=== PATIENT | female | born 2000 | race Two or more races ===

== ENCOUNTER 2021-05-19 10:15 | Outpatient (CLI) | payer OTHER | END 2021-05-19 10:45 | disposition home or self-care (01) | LOC: PPH VACUNA 10:15 | PROVIDERS: ATTEND Emergency Medicine Pediatric Emergency Medicine | DX: Z23 Encounter for immunization (principal) ==

== ENCOUNTER 2021-06-07 08:00 | Outpatient (CLI) | payer OTHER | END 2021-06-07 08:30 | disposition home or self-care (01) | LOC: PPH VACUNA 08:00 | PROVIDERS: ATTEND Emergency Medicine Pediatric Emergency Medicine | DX: Z23 Encounter for immunization (principal) ==

== ENCOUNTER 2021-09-16 12:45 | Outpatient (CLI) | payer OTHER | END 2021-09-16 12:59 | disposition home or self-care (01) | LOC: LAB 12:45 | PROVIDERS: ATTEND Preventive Medicine Occupational Medicine | DX: Z20.828 Contact with and (suspected) exposure to other viral communicable diseases (principal) ==

== ENCOUNTER 2021-10-20 08:00 | Outpatient (CLI) | payer OTHER | END 2021-10-20 08:30 | disposition home or self-care (01) | LOC: PPH VACUNA 08:00 | PROVIDERS: ATTEND Emergency Medicine Pediatric Emergency Medicine | DX: Z23 Encounter for immunization (principal) ==

== ENCOUNTER 2022-01-02 15:56 | Outpatient (CLI) | payer OTHER | END 2022-01-02 16:19 | disposition home or self-care (01) | LOC: LAB 15:56 | PROVIDERS: ATTEND Anesthesiology | DX: Z20.822 Contact with and (suspected) exposure to COVID-19 (principal); A49.3 Mycoplasma infection, unspecified site; J11.1 Influenza due to unidentified influenza virus with other respiratory manifestations ==

== ENCOUNTER 2022-05-09 11:23 | Emergency (ER) | payer OTHER ==
[~2022-05-09] VITALS: Ht 160 cm; Wt 77.1 kg
== END 2022-05-09 17:16 | disposition home or self-care (01) ==
LOC: ER 11:23
DX: R11.10 Vomiting, unspecified (principal)

== ENCOUNTER 2022-05-11 08:00 | Outpatient (CLI) | payer OTHER | END 2022-05-11 08:05 | disposition home or self-care (01) | LOC: PPH VACUNA 08:00 | PROVIDERS: ATTEND Emergency Medicine Pediatric Emergency Medicine | DX: Z23 Encounter for immunization (principal) ==

== ENCOUNTER 2022-06-18 23:01 | Emergency (ER) | payer OTHER ==
[~2022-06-18] VITALS: Ht 162.6 cm; Wt 77.1 kg
== END 2022-06-18 23:21 | disposition home or self-care (01) ==
LOC: ER 23:01 → EDBD 23:04 → ER 23:04
DX: S61.211A Laceration without foreign body of left index finger without damage to nail, initial encounter (principal); W26.0XXA Contact with knife, initial encounter; Y93.G3 Activity, cooking and baking; Y92.010 Kitchen of single-family (private) house as the place of occurrence of the external cause; Y99.9 Unspecified external cause status

== ENCOUNTER 2022-11-14 14:24 | Emergency (ER) | payer OTHER ==
[~2022-11-14] VITALS: Ht 160 cm; Wt 77.1 kg
== END 2022-11-14 19:24 | disposition home or self-care (01) ==
LOC: ER 14:24
DX: K52.89 Other specified noninfective gastroenteritis and colitis (principal)

== ENCOUNTER 2023-02-07 22:18 | Emergency (ER) | payer OTHER ==
[~2023-02-07] VITALS: Ht 162.6 cm; Wt 77.1 kg
== END 2023-02-07 22:51 | disposition home or self-care (01) ==
LOC: ER 22:18
DX: S69.82XA Other specified injuries of left wrist, hand and finger(s), initial encounter (principal); W46.1XXA Contact with contaminated hypodermic needle, initial encounter; Y93.89 Activity, other specified; Y92.238 Other place in hospital as the place of occurrence of the external cause; Y99.8 Other external cause status

== ENCOUNTER 2023-06-08 10:15 | Outpatient (CLI) | payer OTHER | END 2023-06-08 10:25 | disposition home or self-care (01) | LOC: PPH VACUNA 10:15 | PROVIDERS: ATTEND Emergency Medicine Pediatric Emergency Medicine | DX: Z23 Encounter for immunization (principal) ==

== ENCOUNTER 2023-06-15 10:20 | Outpatient (CLI) | payer OTHER ==
[2023-06-15 11:45] LABS: PH,URINE 5.5 (5.0-8.0); URINE APPEARANCE Clear; URINE BACTERIA 118.4 uL (0.0-1933); URINE BILIRRUBIN Negative (NEGATIVE); URINE BLOOD Negative; URINE COLOR Yellow; URINE EPITHELIAL CELLS 9.2 uL (0.0-38.8); URINE GLUCOSE Negative (NEGATIVE); URINE LEUKOCYTE Negative; URINE NITRATE Negative; URINE PROTEIN Negative (NEGATIVE); URINE RBC 3.8 uL (0.0-20.8); URINE UROBILINOGEN 0.2 E.U./dl; URINE WBC 23.9 uL (0.0-23.2)
[2023-06-15 11:46] LABS: HEMATOCRIT 33.1 % (36.0-45.00); HEMOGLOBIN 10.8 g/dL (12.0-15.00); MEAN CELL VOLUME 78.7 fL (80.00-100.00); MEAN CORPUSCULAR HEMOGLOBIN 25.8 pg (27.00-32.0); MEAN CORPUSCULAR HGB CONC 32.8 g/dl (32.0-36.0); PLATELET COUNT 167 K/uL (150-450); RED CELL DISTRIBUTION WIDTH 16.3 % (11.5-14.5)
[2023-06-15 12:30] LABS: ALBUMIN 3.7 gm/dL (3.4-5.0); BILIRUBIN TOTAL 0.31 mg/dL (0.3-1.2); CALCIUM 9.2 mg/dL (8.5-10.1); CHOL HDL RATIO 3.8 (0-5.0); CREATININE SERUM 0.75 mg/dL (0.55-1.02); GFR 94.94; GLOBULINA 3.4 G/DL (2.4-3.5); POTASSIUM 4.37 mEq/L (3.5-5.1); T4 FREE 0.95 NG/ML (0.76-1.46); TOTAL PROTEIN 7.1 gm/dL (6.4-8.2); TSH 0.726 uIU/mL (0.358-3.74)
== END 2023-06-15 10:21 | disposition home or self-care (01) ==
LOC: LAB 10:20
PROVIDERS: ATTEND Obstetrics & Gynecology
DX: I10 Essential (primary) hypertension (principal); E03.9 Hypothyroidism, unspecified; E78.00 Pure hypercholesterolemia, unspecified; Z11.4 Encounter for screening for human immunodeficiency virus [HIV]; N39.0 Urinary tract infection, site not specified; E55.9 Vitamin D deficiency, unspecified; Z21 Asymptomatic human immunodeficiency virus [HIV] infection status; R79.9 Abnormal finding of blood chemistry, unspecified; R79.89 Other specified abnormal findings of blood chemistry

== ENCOUNTER 2023-10-18 10:20 | Emergency (ER) | payer OTHER ==
[~2023-10-18] VITALS: Ht 162.6 cm; Wt 78.0 kg
[2023-10-18] MEDS ORDERED: VITATRUE COMBO1 EACH PO (10:51)
[2023-10-18] MEDS ORDERED: 0.9 % SODIUM CHLORIDE 1,000 ML IV STA (11:31)
[2023-10-18] MEDS ORDERED: ONDANSETRON HCL 2 MG/ML VIAL IV ONE (11:45)
[2023-10-18] MEDS ORDERED: FAMOTIDINE/PF 20 MG/2 ML VIAL IV ONE (11:45)
[2023-10-18 11:55] LABS: HEMATOCRIT 33.9 % (36.0-45.00); HEMOGLOBIN 11.3 g/dL (12.0-15.00); MEAN CELL VOLUME 81.6 fL (80.00-100.00); MEAN CORPUSCULAR HEMOGLOBIN 27.1 pg (27.00-32.0); MEAN CORPUSCULAR HGB CONC 33.2 g/dl (32.0-36.0); PLATELET COUNT 176 K/uL (150-450); RED BLOOD COUNT 4.15 M/uL (4.00-6.00); RED CELL DISTRIBUTION WIDTH 16.6 % (11.5-14.5)
[2023-10-18 12:38] LABS: ALBUMIN 3.4 gm/dL (3.4-5.0); BILIRUBIN TOTAL 0.36 mg/dL (0.3-1.2); CALCIUM 9.3 mg/dL (8.5-10.1); CREATININE SERUM 0.6 mg/dL (0.55-1.02); GFR 122.82; GLOBULINA 3.6 G/DL (2.4-3.5); POTASSIUM 3.95 mEq/L (3.5-5.1)
[2023-10-18 12:45] LABS: PH,URINE 6.5 (5.0-8.0); URINE APPEARANCE Clear; URINE BILIRRUBIN Negative (NEGATIVE); URINE BLOOD Negative; URINE COLOR Yellow; URINE GLUCOSE Negative (NEGATIVE); URINE LEUKOCYTE Moderate; URINE NITRATE Negative; URINE PROTEIN Negative (NEGATIVE); URINE UROBILINOGEN 0.2 E.U./dl
[2023-10-18 12:49] LABS: URINE BACTERIA 4350.7 uL (0.0-1933); URINE EPITHELIAL CELLS 49.7 uL (0.0-38.8); URINE RBC 15.6 uL (0.0-20.8); URINE WBC 41.5 uL (0.0-23.2)
== END 2023-10-18 15:50 | disposition home or self-care (01) ==
LOC: ER 10:20
PROVIDERS: Emergency Medicine
DX: O23.41 Unspecified infection of urinary tract in pregnancy, first trimester (principal); N39.0 Urinary tract infection, site not specified; Z3A.01 Less than 8 weeks gestation of pregnancy; Z20.822 Contact with and (suspected) exposure to COVID-19

== ENCOUNTER 2023-10-26 17:14 | Emergency (ER) | payer OTHER ==
[~2023-10-26] VITALS: Ht 162.6 cm; Wt 78.0 kg
[~2023-10-26 17:14] MED LIST: VITATRUE COMBO1 EACH PO
[2023-10-26] MEDS ORDERED: FAMOTIDINE/PF 20 MG in 0.9 % SODIUM CHLORIDE 8 ML IV PUSH STA (18:39)
[2023-10-26] MEDS ORDERED: ONDANSETRON HCL 2 MG/ML VIAL IV ONE (18:45)
[2023-10-26] MEDS ORDERED: 0.9 % SODIUM CHLORIDE 1,000 ML IV SCH (18:45)
[2023-10-26 19:30] LABS: HEMATOCRIT 36.4 % (36.0-45.00); HEMOGLOBIN 12.1 g/dL (12.0-15.00); MEAN CELL VOLUME 80.6 fL (80.00-100.00); MEAN CORPUSCULAR HEMOGLOBIN 26.8 pg (27.00-32.0); MEAN CORPUSCULAR HGB CONC 33.2 g/dl (32.0-36.0); PLATELET COUNT 182 K/uL (150-450); RED BLOOD COUNT 4.52 M/uL (4.00-6.00); RED CELL DISTRIBUTION WIDTH 16.4 % (11.5-14.5)
[2023-10-26 20:16] LABS: ALBUMIN 3.9 gm/dL (3.4-5.0); BILIRUBIN TOTAL 0.27 mg/dL (0.3-1.2); CALCIUM 9.7 mg/dL (8.5-10.1); CREATININE SERUM 0.56 mg/dL (0.55-1.02); GLOBULINA 3.7 G/DL (2.4-3.5); POTASSIUM 3.86 mEq/L (3.5-5.1); TOTAL PROTEIN 7.6 gm/dL (6.4-8.2)
[2023-10-26 20:56] LABS: PH,URINE 6.5 (5.0-8.0); URINE APPEARANCE Clear; URINE BILIRRUBIN Negative (NEGATIVE); URINE BLOOD Negative; URINE COLOR Yellow; URINE GLUCOSE Negative (NEGATIVE); URINE LEUKOCYTE Trace; URINE NITRATE Negative; URINE PROTEIN Negative (NEGATIVE); URINE UROBILINOGEN 0.2 E.U./dl
[2023-10-26 20:57] LABS: URINE BACTERIA 815.1 uL (0.0-1933); URINE EPITHELIAL CELLS 9.4 uL (0.0-38.8); URINE RBC 3.8 uL (0.0-20.8); URINE WBC 15.4 uL (0.0-23.2)
[2023-10-26] MEDS ORDERED: PEPCID AC20 MG PO (21:18)
[2023-10-26] MEDS ORDERED: ZOFRAN8 MG PO (21:18)
== END 2023-10-26 21:35 | disposition home or self-care (01) ==
LOC: ER 17:14
PROVIDERS: General Practice
DX: O21.0 Mild hyperemesis gravidarum (principal); Z3A.09 9 weeks gestation of pregnancy

== ENCOUNTER 2023-11-06 23:04 | Emergency (ER) | payer OTHER ==
[~2023-11-06] VITALS: Ht 162.6 cm; Wt 74.8 kg
[~2023-11-06 23:04] MED LIST changes: +PEPCID AC20 MG PO; +ZOFRAN8 MG PO
[2023-11-06] MEDS ORDERED: PRENA1 TRUE CO1 EACH PO (23:13)
[2023-11-07] MEDS ORDERED: FAMOTIDINE/PF 20 MG/2 ML VIAL IV PUSH STA (01:24)
[2023-11-07] MEDS ORDERED: PROMETHAZINE HCL 50 MG/ML AMPUL IM STA (01:24)
[2023-11-07] MEDS ORDERED: RINGERS SOLUTION,LACTATED 1,000 ML IV ONE (01:30)
[2023-11-07 01:51] LABS: HEMATOCRIT 35.6 % (36.0-45.00); HEMOGLOBIN 11.9 g/dL (12.0-15.00); MEAN CELL VOLUME 80.1 fL (80.00-100.00); MEAN CORPUSCULAR HEMOGLOBIN 26.8 pg (27.00-32.0); MEAN CORPUSCULAR HGB CONC 33.5 g/dl (32.0-36.0); PLATELET COUNT 169 K/uL (150-450); RED BLOOD COUNT 4.45 M/uL (4.00-6.00); RED CELL DISTRIBUTION WIDTH 16.1 % (11.5-14.5)
[2023-11-07 02:04] LABS: INR 1.02; PROTHROMBIN TIME 10.7 SECONDS (9.0-11.5)
[2023-11-07 02:56] LABS: CALCIUM 9.5 mg/dL (8.5-10.1); CREATININE SERUM 0.52 mg/dL (0.55-1.02); GFR 144.87; POTASSIUM 3.52 mEq/L (3.5-5.1)
[2023-11-07] MEDS ORDERED: PHENERGAN25 MG PO (05:09)
[2023-11-07] MEDS ORDERED: PEPCID40 MG PO (05:09)
== END 2023-11-07 05:20 ==
LOC: ER 23:04
PROVIDERS: General Practice
DX: O21.0 Mild hyperemesis gravidarum (principal); Z3A.10 10 weeks gestation of pregnancy

== ENCOUNTER 2023-11-21 07:28 | Emergency (ER) | payer OTHER ==
[~2023-11-21] VITALS: Ht 162.6 cm; Wt 74.8 kg
[~2023-11-21 07:28] MED LIST changes: +PEPCID40 MG PO; +PHENERGAN25 MG PO; +PRENA1 TRUE CO1 EACH PO
[2023-11-21] MEDS ORDERED: 0.9 % SODIUM CHLORIDE 1,000 ML IV STA (08:34)
[2023-11-21] MEDS ORDERED: FAMOtidine 10 MG/ML (4ML VIAL) IV STA (08:36)
[2023-11-21] MEDS ORDERED: ONDANSETRON HCL 2 MG/ML VIAL IV STA (08:36)
[2023-11-21 08:46] LABS: HEMATOCRIT 33.4 % (36.0-45.00); HEMOGLOBIN 11.1 g/dL (12.0-15.00); MEAN CELL VOLUME 80.7 fL (80.00-100.00); MEAN CORPUSCULAR HEMOGLOBIN 26.9 pg (27.00-32.0); MEAN CORPUSCULAR HGB CONC 33.3 g/dl (32.0-36.0); PLATELET COUNT 168 K/uL (150-450); RED BLOOD COUNT 4.14 M/uL (4.00-6.00); RED CELL DISTRIBUTION WIDTH 15.8 % (11.5-14.5)
[2023-11-21 09:42] LABS: CALCIUM 8.9 mg/dL (8.5-10.1); CREATININE SERUM 0.56 mg/dL (0.55-1.02); POTASSIUM 3.65 mEq/L (3.5-5.1)
[2023-11-21 15:50] LABS: PH,URINE 6.5 (5.0-8.0); URINE APPEARANCE Clear; URINE BILIRRUBIN Negative (NEGATIVE); URINE BLOOD Negative; URINE COLOR Yellow; URINE GLUCOSE Negative (NEGATIVE); URINE LEUKOCYTE Moderate; URINE NITRATE Negative; URINE PROTEIN Negative (NEGATIVE)
[2023-11-21 15:53] LABS: URINE BACTERIA 6153.4 uL (0.0-1933); URINE EPITHELIAL CELLS 53.7 uL (0.0-38.8); URINE RBC 23.7 uL (0.0-20.8); URINE WBC 87.9 uL (0.0-23.2)
[2023-11-21 17:10] LABS: URINE CRYSTALS NEGATIVE /HPF; URINE MUCUS HEAVY
== END 2023-11-21 19:15 | disposition home or self-care (01) ==
LOC: ER 07:28
PROVIDERS: General Practice
DX: O21.8 Other vomiting complicating pregnancy (principal); Z3A.12 12 weeks gestation of pregnancy

== ENCOUNTER 2023-11-26 11:16 | Outpatient (CLI) | payer OTHER | END 2023-11-26 11:17 | disposition home or self-care (01) | LOC: LAB 11:16 | PROVIDERS: ATTEND Orthopaedic Surgery Sports Medicine | DX: M10.9 Gout, unspecified (principal) ==

== ENCOUNTER 2024-04-17 10:34 | Outpatient (CLI) | payer OTHER | END 2024-04-17 11:31 | disposition home or self-care (01) | LOC: NST 10:34 | PROVIDERS: ATTEND Obstetrics & Gynecology Gynecology | DX: Z34.83 Encounter for supervision of other normal pregnancy, third trimester (principal) ==

== ENCOUNTER 2024-05-19 12:20 | Inpatient (IN) | payer OTHER ==
[~2024-05-19] VITALS: Ht 162.6 cm; Wt 86.6 kg
[2024-06-04] VITALS (11 sets, daily range): BP systolic 122–145; BP diastolic 60–83; O2SAT 99
[2024-06-04] MEDS ORDERED: RINGERS SOLUTION,LACTATED 1,000 ML IV SCH (06:15)
[2024-06-04 07:19] LABS: URINE CAST 2.59 uL (0.0-1.40); URINE EPITHELIAL CELLS 33.5 uL (0.0-38.8); URINE RBC 3.8 uL (0.0-20.8); URINE WBC 144.5 uL (0.0-23.2)
[2024-06-04 07:20] LABS: URINE APPEARANCE Clear; URINE BILIRRUBIN Negative (NEGATIVE); URINE BLOOD Negative; URINE COLOR Yellow; URINE GLUCOSE Negative (NEGATIVE); URINE KETONE Negative (NEGATIVE); URINE LEUKOCYTE Large; URINE NITRATE Negative; URINE PROTEIN Negative (NEGATIVE)
[2024-06-04 07:24] LABS: HEMATOCRIT 28.1 % (36.0-45.00); HEMOGLOBIN 9.3 g/dL (12.0-15.00); MEAN CELL VOLUME 75.7 fL (80.00-100.00); RED BLOOD COUNT 3.71 M/uL (4.00-6.00); RED CELL DISTRIBUTION WIDTH 17.5 % (11.5-14.5)
[2024-06-04 07:27] LABS: INR < 0.93; PROTHROMBIN TIME 10.1 SECONDS (9.0-11.5)
[2024-06-04 07:37] LABS: PLATELET COUNT 111 K/uL (150-450)
[2024-06-04 07:50] LABS: ALBUMIN 2.4 gm/dL (3.4-5.0); BILIRUBIN TOTAL 0.25 mg/dL (0.3-1.2); CALCIUM 8.4 mg/dL (8.5-10.1); CREATININE SERUM 0.57 mg/dL (0.55-1.02); GFR 129.23; GLOBULINA 3.9 G/DL (2.4-3.5); POTASSIUM 3.61 mEq/L (3.5-5.1); TOTAL PROTEIN 6.3 gm/dL (6.4-8.2)
[2024-06-04] MEDS ORDERED: OXYTOCIN 500 ML IV SCH (09:30)
[2024-06-04] MEDS ORDERED: MORPHINE SULFATE 4 MG/ML CARTRIDGE IV STA (14:04)
[2024-06-04] MEDS ORDERED: TERBUTALINE SULFATE 1 MG/ML AMPUL SUBCUTANEO STA (14:42)
[2024-06-04] MEDS ORDERED: CHLORHEXIDINE GLUCONATE 120 ML BOTTLE TOP NR (18:45)
[2024-06-04] MEDS ORDERED: OXYTOCIN 1,000 ML IV SCH (18:45)
[2024-06-04] MEDS ORDERED: IBUprofen 400 MG TABLET PO PRN (18:45)
[2024-06-04] MEDS ORDERED: METHYLERGONOVINE MALEATE 0.2 MG/ML AMPUL IM NR (19:15)
[2024-06-04] MEDS ORDERED: ERYTHROMYCIN BASE OPHT 1GM EACH TUBE OP ONE (19:45)
[2024-06-05 00:33] VITALS: BP 122/73
[2024-06-05 08:00] VITALS: BP 110/69
[2024-06-05 08:15] LABS: HEMATOCRIT 26.6 % (36.0-45.00); MEAN CELL VOLUME 76.6 fL (80.00-100.00); MEAN CORPUSCULAR HGB CONC 32.3 g/dl (32.0-36.0); RED BLOOD COUNT 3.47 M/uL (4.00-6.00); RED CELL DISTRIBUTION WIDTH 17.3 % (11.5-14.5)
[2024-06-05 08:21] LABS: HEMOGLOBIN 8.6 g/dL (12.0-15.00); MEAN CORPUSCULAR HEMOGLOBIN 24.7 pg (27.00-32.0); PLATELET COUNT 89 K/uL (150-450)
[2024-06-05 20:40] VITALS: BP 122/68
[2024-06-06 01:21] VITALS: BP 132/76
[2024-06-06 07:59] VITALS: BP 130/80
[2024-06-06] MEDS ORDERED: IRON FUM,PS/FOLIC/BCOMP,C NO.9 1 CAP CAPSULE PO SCH (09:00)
== END 2024-06-06 14:03 | disposition home or self-care (01) | DRG 807 ==
LOC: OB/GYN 05-29 13:15 → LDR 06-04 05:57 → OB/GYN 06-04 05:57 → LDR 06-04 12:18 → OB/GYN 06-04 15:45
PROVIDERS: Obstetrics & Gynecology; ADMIT Obstetrics & Gynecology Maternal & Fetal Medicine; ATTEND Obstetrics & Gynecology Maternal & Fetal Medicine
PROC: 10E0XZZ Delivery of Products of Conception, External Approach (ICD-10-PCS; principal; 2024-06-04)
PROC: 0KQM0ZZ Repair Perineum Muscle, Open Approach (ICD-10-PCS; 2024-06-04)
PROC: 4A1HXCZ Monitoring of Products of Conception, Cardiac Rate, External Approach (ICD-10-PCS; 2024-06-04)
DX: O70.1 Second degree perineal laceration during delivery (principal); Z37.0 Single live birth; Z3A.40 40 weeks gestation of pregnancy; Z20.822 Contact with and (suspected) exposure to COVID-19

== ENCOUNTER 2024-05-26 11:57 | Outpatient (CLI) | payer OTHER | END 2024-05-26 13:14 | disposition home or self-care (01) | LOC: NST 11:57 | PROVIDERS: ATTEND Obstetrics & Gynecology | DX: Z34.83 Encounter for supervision of other normal pregnancy, third trimester (principal) ==

== ENCOUNTER → 2024-11-25 | Emergency (ER) | payer OTHER ==
[~2024-11-25] VITALS: Ht 160 cm; Wt 72.6 kg
== END | disposition left against medical advice (07) ==
LOC: ER 18:51
DX: Z53.21 Procedure and treatment not carried out due to patient leaving prior to being seen by health care provider (principal)

== ENCOUNTER 2025-05-19 13:30 | Emergency (ER) | payer OTHER ==
[~2025-05-19] VITALS: Ht 162.6 cm; Wt 73.0 kg
[2025-05-19] MEDS ORDERED: RINGERS SOLUTION,LACTATED 1,000 ML IV SCH (16:45)
[2025-05-19] MEDS ORDERED: FAMOTIDINE/PF 20 MG/2 ML VIAL IV PUSH ONE (16:45)
[2025-05-19] MEDS ORDERED: ONDANSETRON HCL 2 MG/ML VIAL IV ONE (16:45)
[2025-05-19 17:06] LABS: BASO % 0.2 % (0.1-1.2); EOS # 0.00 (0.04-0.54); EOS % 0.0 % (0.7-7.0); LYMPH # 0.56 (1.18-3.74); LYMPH % 9.5 % (19.3-53.1); MEAN PLATELET VOLUME 11.30 fl (9.4-12.4); MONO # 0.41 (0.24-0.82); MONO % 7.0 % (4.7-12.5); NEUT # 4.89 (1.56-6.13); NEUT % 83.1 % (34.0-71.1); RED CELL DISTRIBUTION WIDTH 14.2 % (11.6-14.4)
[2025-05-19 17:55] LABS: BUN CREA RATIO 18.0 (7.0-25.0); CREATININE SERUM 0.68 mg/dL (0.55-1.02); GFR 104.59; GLUCOSE FASTING 99.0 mg/dL (65-100); OSMOLALITY SERUM 279.0 MOSM/KG (275-295)
[2025-05-19 18:55] LABS: URINE APPEARANCE Cloudy; URINE BILIRRUBIN Negative (NEGATIVE); URINE BLOOD Negative; URINE COLOR Yellow; URINE GLUCOSE Negative (NEGATIVE); URINE KETONE 15 (NEGATIVE); URINE LEUKOCYTE Trace; URINE NITRATE Negative; URINE PROTEIN Trace (NEGATIVE); URINE UROBILINOGEN 1.0 E.U./dl
[2025-05-19 18:59] LABS: URINE BACTERIA 5090.4 uL (0.0-1933); URINE EPITHELIAL CELLS 129.0 uL (0.0-38.8); URINE RBC 18.6 uL (0.0-20.8); URINE WBC 169.2 uL (0.0-23.2)
[2025-05-19 19:17] LABS: URINE CAST 0.43 uL (0.0-1.40)
[2025-05-19 19:20] LABS: URINE MUCUS MODERATE
[2025-05-19 19:21] LABS: URINE CRYSTALS FEW /HPF
[2025-05-19 19:23] LABS: TYPE CELLS SQUAMOUS
== END 2025-05-19 23:18 | disposition home or self-care (01) ==
LOC: ER 13:30
PROVIDERS: Emergency Medicine
DX: A05.9 Bacterial foodborne intoxication, unspecified (principal); K29.70 Gastritis, unspecified, without bleeding

== ENCOUNTER 2025-06-30 14:30 | Outpatient (CLI) | payer OTHER | END 2025-06-30 14:40 | disposition home or self-care (01) | LOC: PPH VACUNA 14:30 | PROVIDERS: ATTEND Emergency Medicine Pediatric Emergency Medicine | DX: Z23 Encounter for immunization (principal) ==